=== PATIENT | female | born 1990 | race Hispanic/Latino ===

== ENCOUNTER 2020-05-28 11:48 | Emergency (ER) | payer BC ==
[2020-05-28] MEDS ORDERED: VALACYCLOVIR500 MG PO (12:22)
[2020-05-28] MEDS ORDERED: PREDNISONE20 MG PO (12:22)
[2020-05-28] MEDS ORDERED: ARTIFICIAL TEAR1 OS (12:22)
[2020-05-28 12:28] VITALS: BP 138/70
== END 2020-05-28 12:38 | disposition home or self-care (01) | DRG 74 ==
LOC: ED 11:48
DX: G51.0 Bell's palsy (principal)